=== PATIENT | female | born 1950 | race Caucasian/White ===

== ENCOUNTER → 2024-05-29 | Outpatient (CLI) | payer MEDICARE, SELFPAY ==
[2024-05-29 17:48] LABS: INR 4.5 (0.9-1.3)
[2024-05-29 17:59] LABS: Prothrombin Time 44.1 Seconds (9.0-12.2)
== END | disposition home or self-care (01) ==
LOC: COPL 16:49
PROVIDERS: PCP Nurse Practitioner Family; Referring Provider Internal Medicine Cardiovascular Disease; Visit Provider Internal Medicine Cardiovascular Disease
DX: I11.0 Hypertensive heart disease with heart failure (principal); I50.22 Chronic systolic (congestive) heart failure; I20.9 Angina pectoris, unspecified
CPT/HCPCS: 36415; 85610

== ENCOUNTER → 2024-06-20 | Outpatient (CLI) | payer MEDICARE, SELFPAY ==
[2024-06-20 16:52] LABS: INR 3.1 (0.9-1.3)
[2024-06-20 17:17] LABS: Prothrombin Time 30.9 Seconds (9.0-12.2)
== END | disposition home or self-care (01) ==
LOC: COPL 15:29
PROVIDERS: PCP Student in an Organized Health Care Education/Training Program; Referring Provider Internal Medicine Cardiovascular Disease; Visit Provider Internal Medicine Cardiovascular Disease
DX: I11.0 Hypertensive heart disease with heart failure (principal); I50.22 Chronic systolic (congestive) heart failure; I48.20 Chronic atrial fibrillation, unspecified; I20.9 Angina pectoris, unspecified
CPT/HCPCS: 36415; 85610

== ENCOUNTER 2024-09-24 10:20 | Emergency (ER) | payer MEDICARE, SELFPAY ==
[2024-09-24 10:21] VITALS: BMI 26.1
[2024-09-24 10:28] VITALS: BP 147/76; PULSE 92; RESP 19; TEMP 36.7; O2SAT 96
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
--- NOTE | 2024-09-24 10:51 | XR_ITS ---
Examination: Hand, right 3 views Technique: Hand AP, oblique, lateral 3 views Date and time of exam: September 24, 2024, 1109 hrs. Indications: Patient fell yesterday with injury to the hand, hand pain Findings: Acute impacted comminuted intra-articular fractures distal radius including through the metaphyseal region and distal shaft The fingers are curved which limits hand assessment The ulnar styloid tip is also fractured Impression: Limited study Acute fractures distal radius as above
--- NOTE | 2024-09-24 10:51 | XR_ITS ---
Examination: Wrist, right 3 views Technique: Wrist AP, oblique, lateral 3 views Date and time of exam: September 24, 2024, 1109 hrs. Indications: Patient fell yesterday with injury to the wrist, wrist pain. Findings: Acute fractures distal radial shaft Acute impacted comminuted intra-articular fractures distal radial metaphysis Fracture ulnar styloid tip Carpal bones appear intact Impression: Multiple acute fractures distal radius
[2024-09-24] MEDS: ACETAMINOPHEN 325 MG TABLET 650 MG PO (10:58)
[2024-09-24 13:32] VITALS: BP 149/90; PULSE 64; RESP 18; TEMP 36.8; O2SAT 100
--- NOTE | 2024-09-24 13:35 | PC.NURSE ---
[facility]/o right wrist pain s/p fall last pm, patient denies loc, patient did not hit her head when she fell, and denies other injuries, currently patient refuses to get into a gown and is awaiting consult with orthopedic surgeon, patient states pain /10 and has decreased from the time she arrived to er, skin is warm dry and pink, patient has positive deformity to right wrist, skin to left wrist warm and pink, cap refill at 2 seconds, patient states pain is tolerable at this time, patient has towel on right wrist and states it is helping with her pain. Patient has no other needs at this time.
--- NOTE | 2024-09-24 14:14 | PC.NURSE ---
Dr. Canales at bedside.
[2024-09-24] MEDS: LIDOCAINE HCL 1% 20 ML VIAL 10 ML INFL (14:32)
--- NOTE | 2024-09-24 14:35 | PC.NURSE ---
DR CUEVA AT BEDSIDE TO PERFORM A HEMATOMA BLOCK TO THE RIGHT WRIST VERBAL CONSENT OBTAINED WITH MARIANNA VAZQUEZ DUE TO PT NOT BEING ABLE TO SIGN CONSENT FORM
--- NOTE | 2024-09-24 14:55 | XR_ITS ---
Examination: Wrist, left 3 views Technique: Wrist AP, oblique, lateral 3 views Date and time of exam: September 24, 2024, 1456 hrs. Indications: Second reduction attempt fractures distal radius today Findings: Significant further improvement in alignment fractures distal radius without significant displacement of the distal epiphysis on the lateral view Impression: Significant further improvement in alignment fracture distal radius
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
--- NOTE | 2024-09-24 15:07 | PD.SUROPNT ---
Date of Procedure 09/24/24 Pre Op Diagnosis Angulated intra-articular right Colles' fracture Post Op Diagnosis Same Procedure Close manipulation of right Colles' fracture after hematoma block Findings Comminuted intra-articular right Colles' fracture with shortening and angulation Procedure Description The patient's lateral right wrist was confirmed as the injured extremity Consent signed for manipulation. The right wrist was very carefully prepped with alcohol and ChloraPrep. 5 cc hematoma block done to the right radius and 5 cc hematoma block to the right ulna. Nice aspiration occurred with blood both done without difficulty using 22-gauge needle. After waiting 7 minutes the fracture of the right wrist manipulated and placed in a sugar-tong's cast 6 inch cut bias was applied followed by net dressing postreduction films ordered Anesthesia regional Drains None Implants None Pathology / specimen None IVF Infused 0 Urine Output 0 Estimated Blood Loss 0 Condition Stable Disposition no change Surgeon Jewel Sen MD Additional Comment Elevate elevate elevated. Fingers gently 5-10 times per hour. Elevate on pillows. Sent home
--- NOTE | 2024-09-24 15:21 | XR_ITS ---
Examination: CT right wrist, without contrast. 2-D sagittal reconstructions. 2-D coronal reconstructions. 3-D reconstructions. Date and time of exam:September 24, 2024, 1551 hrs. Indications: Patient fell last night with injury to the wrist, wrist pain CTDI: vol (mGy):4.18 DLP: (mGycm):69 Technique: Multiple 1.25 mm axial sections of the left wrist have been obtained. 2-D sagittal and coronal reconstructions have been obtained. 3-D reconstructions have been obtained. Low dose protocols were performed. One or more of the following dose reduction techniques were used; automated exposure control, adjustment of the mA and/or KV according to patient size, use of iterative reconstruction technique. Findings: Fractures distal shaft of the radius without significant displacement Comminuted mildly impacted intra-articular multiple fractures of the distal radial metaphysis with adequate alignment on the current postreduction views Comminuted fractures distal ulna including through the ulnar styloid tip Carpal bones intact with separation between the navicular in the lunate Impression: Comminuted fractures distal radius as above
[2024-09-24 16:17] VITALS: BP 152/89; PULSE 75; RESP 19; TEMP 36.6; O2SAT 96
== END 2024-09-24 16:46 | disposition home or self-care (01) ==
PROVIDERS: Emergency Provider Emergency Medicine; PCP Student in an Organized Health Care Education/Training Program
DX: S52.531A Colles' fracture of right radius, initial encounter for closed fracture (principal); S52.571A Other intraarticular fracture of lower end of right radius, initial encounter for closed fracture; S52.611A Displaced fracture of right ulna styloid process, initial encounter for closed fracture; W19.XXXA Unspecified fall, initial encounter
CPT/HCPCS: 25605; 73110; 73130; 73200; 99284; J3490; A9270

== ENCOUNTER → 2024-09-26 | Outpatient (CLI) | payer MEDICARE, SELFPAY ==
--- NOTE | 2024-09-26 | XR_ITS ---
Examination: Wrist, right 3 views Technique: Wrist AP, oblique, lateral 3 views Date and time of exam: September 26, 2024 1329 hours, compared to wrist films dating to September 24, 2024 FINDINGS: Stable alignment multiple fractures distal radius compared to prior studies Carpal bones intact IMPRESSION: Stable alignment multiple fractures distal radius
== END | disposition home or self-care (01) ==
PROVIDERS: PCP Student in an Organized Health Care Education/Training Program; Referring Provider Orthopaedic Surgery; Visit Provider Orthopaedic Surgery
DX: S52.531A Colles' fracture of right radius, initial encounter for closed fracture (principal); X58.XXXA Exposure to other specified factors, initial encounter
CPT/HCPCS: 73110

== ENCOUNTER → 2024-10-13 | Outpatient (CLI) | payer MEDICARE, SELFPAY ==
--- NOTE | 2024-10-13 12:36 | XR_ITS ---
Examination: Wrist, right 3 views Technique: Wrist AP, oblique, lateral 3 views Date and time of exam: October 16, 2024 1245 hours INDICATIONS: Acute comminuted fractures distal radial metaphysis 17/09/2024 FINDINGS: On this study no definite change in alignment of comminuted fractures distal radial metaphysis with impaction Early healing IMPRESSION: On this study no definite change in alignment of comminuted fractures distal radial metaphysis
--- NOTE | 2024-10-13 12:36 | XR_ITS ---
Examination: Hand, right 3 views Technique: Hand AP, oblique, lateral 3 views Date and time of exam: October 13, 2024 1245 hours INDICATIONS: Injury to the hand and wrist September 24, 2024, comminuted fractures distal radius on CT wrist September 24, 2024 FINDINGS: Prominent osteopenia Slight further impaction of comminuted fractures distal radial metaphysis compared to October 13, 2024 Early healing Metacarpals digits intact IMPRESSION: Slight further impaction of comminuted fractures distal radial metaphysis compared to October 13, 2024
== END | disposition home or self-care (01) ==
LOC: CDIM 12:31
PROVIDERS: Referring Provider Nurse Practitioner Gerontology; Visit Provider Nurse Practitioner Gerontology
DX: S52.91XA Unspecified fracture of right forearm, initial encounter for closed fracture (principal); X58.XXXA Exposure to other specified factors, initial encounter
CPT/HCPCS: 73110; 73130

== ENCOUNTER 2025-01-12 04:09 | Emergency (ER) | payer MEDICARE, SELFPAY ==
[2025-01-12] VITALS (10 sets, daily range): BP systolic 113–189; BP diastolic 68–97; PULSE 60–94; RESP 15–95; TEMP 36.6–36.8; O2SAT 85–99; BMI 22.3
--- NOTE | 2025-01-12 04:41 | PD.EDFALL ---
ED Fall Injury RME/HPI General Chief Complaint: Fall Stated Complaint: Fall, shoulder/head injury Time Seen by Provider: 01/12/25 04:40 Arrival date/time: 01/12/25 04:09 RME / HPI RME / HPI Narrative: See MDM for Dr. Geller's HPI Documentation. Related Data Home Medications ?Medication ?Instructions ?Recorded ?Confirmed hydrochlorothiazide 25 mg tablet 25 mg PO QAM #0 tabs 11/21/15 11/30/19 ramipril 10 mg capsule (Altace) 10 mg PO QDAY #0 caps 11/21/15 11/30/19 ergocalciferol (vitamin D2) 1,250 1,250 mcg PO QWEEK 11/23/19 11/30/19 mcg (50,000 unit) capsule (Vitamin D2) meloxicam 15 mg tablet 15 mg PO QDAY PRN Pain 11/23/19 11/30/19 tramadol 50 mg tablet 50 mg PO DAILY 11/23/19 11/30/19 Allergies Allergy/AdvReac Type Severity Reaction Status Date / Time codeine Allergy Severe Rash Verified 09/24/24 10:23 morphine Allergy Intermediate Itching Verified 09/24/24 10:23 ketorolac (From Toradol) Allergy Nausea Verified 09/24/24 10:23 Review of Systems Review of Systems Systems Reviewed: All systems reviewed, normal except as documented Past Medical History Past Medical History CARDIAC: Positive Atrial Fibrillation and Hypertension GENITOURINARY: Positive Renal Disease REPRODUCTIVE: Positive Breast Cancer and Previous Pregnancies MUSCULOSKELETAL: Positive Arthritis HEMATOLOGIC: Positive Anemia OTHER HISTORY: Positive Breast Cancer Family History FAMILY HISTORY: Positive Family Respiratory Disorders, Family Cardiac Disorders, Family Gastrointestinal Problems, Family Cancer and Family Surgery Surgical History SURGICAL: Positive Joint Replacement and Lumpectomy ED Exam Narrative Physical exam: See [facility] for Dr. Geller's Physical Exam Documentation. Course Quality Measures none Orders Category Date Time Status IV [Insert IV] NOW Care 01/12/25 04:32 Active Straight [In and Out Catheter] X1 Care 01/12/25 04:41 Active sling [Splint / Immobilizer] STAT Care 01/12/25 05:[address] cervical spine wo con Stat Exams 01/12/25 04:[address] chest abdomen pelvis wo Stat Exams 01/12/25 04:[address] facial bones wo con Stat Exams 01/12/25 04:[address] head/brain wo con Stat Exams 01/12/25 04:42 Ordered XR chest 1V portable Stat Exams 01/12/25 04:42 Taken XR humerus RT min 2V Stat Exams 01/12/25 04:42 Taken XR shoulder RT 1V Stat Exams 01/12/25 05:46 Ordered XR shoulder RT min 2V Stat Exams 01/12/25 04:42 Taken BNP [B-Type Natriuretic Peptide] Stat Lab 01/12/25 05:01 Received Bilirubin,Direct Stat Lab 01/12/25 05:01 Completed CBC Stat Lab 01/12/25 05:01 Completed CMP [Comprehensive Metabolic Panel] Stat Lab 01/12/25 05:01 Completed Magnesium Stat Lab 01/12/25 05:01 Completed PT [Prothrombin Time with INR] Stat Lab 01/12/25 05:01 Completed PTT [Partial Thromboplastin Time] Stat Lab 01/12/25 05:01 Completed UA, C/S IF [Urinalysis, C/S if Indicated] Stat Lab 01/12/25 04:43 Ordered HYDROmorphone INJ [Dilaudid Inj] Med 01/12/25 04:41 Discontinued 1 mg IVP X1 ONE Midazolam Inj [Versed Inj] Med 01/12/25 05:31 Discontinued 6 mg IVP X1 ONE Ondansetron Inj [Zofran Inj] Med 01/12/25 04:41 Discontinued 4 mg IVP X1 ONE Sodium Chloride 0.9% 1000 ml [Ns] 1,000 ml Med 01/12/25 04:41 Discontinued IV 999 mls/hr fentaNYL INJ [Sublimaze Inj] Med 01/12/25 05:31 Discontinued 100 mcg IVP X1 ONE Vital Signs Vital signs: Vital Signs Temperature 98.2 F 01/12/25 04:10 Pulse Rate 66 01/12/25 04:10 Respiratory Rate 18 01/12/25 04:10 Blood Pressure 189/97 H 01/12/25 04:10 Pulse Oximetry (%) 96 01/12/25 04:10 Oxygen Delivery Method Room Air 01/12/25 04:10 Fall MDM Narrative MDM Narrative:: This section includes all my notes and documentations, including HPI, PE, and ED course. Wicho Geller MD HPI: 74 y/o female with Hx of Atrial Fibrillation, Hypertension, Renal Disease, Breast Cancer, Arthritis, Anemia here after mechanical fall just [employer]. Tripped on a curb. Fell sustaining head injury and right shoulder injury. Happened so fast, can't remember all the details. Has headache and neck pain. No chest pain or abdominal pain. No other limb pain. No other complaints. ROS: All negative except as documented in HPI. Physical Exam: General: Alert and oriented. In severe pain. HEENT: Conjunctivae and lids clear. EOMI. PERRL. In the frontal area, there is walnut sized hematoma. Neck: Supple. No tenderness. Heart: RRR. Lungs: No respiratory distress. Good air movement. No rhonchi, wheezing, rales. Chest: No tenderness. Abdomen: Soft and nontender. Normal bowel sounds. No distension. No rebound or guarding. Back: No tenderness. Skin: Warm and dry. Neuro: Alert and oriented X 3. Cranial Nerves II-XII grossly intact. No peripheral motor deficits. Musculoskeletal: Remarkable for right shoulder tenderness and deformity. All other major joints and bones are not tender with no limited ROM. Right shoulder dislocation reduced by our resident, see her procedure note. I ordered diagnostic tests. At 0600 on 01/12/2025, the care of the patient was transferred to Dr. Kilgore. Wicho Geller MD Patient data External records reviewed:: [facility] previous records (Reviewed prior ED records from 09/24/24. Patient was seen for Acute pain of right wrist.) Clinical information provided by:: patient Social determinants that could affect healthcare access:: none Patient has the following chronic illnesses:: Atrial Fibrillation, Hypertension, Renal Disease, Breast Cancer, Arthritis, Anemia How is presenting disease/condition affected by chronic disease/condition?: exacerbated by Evaluation data The following diagnostics were reviewed and interpreted by me:: lab results and radiology exam(s) Lab and/or radiology exams considered but not ordered:: None Interpretation Summary: Complete diagnostic tests are pending. Medications / Prescriptions Medications or Prescriptions considered but not ordered:: None Medication administrations:: Medication Administration History Discontinued Medications Fentanyl Citrate (Fentanyl Cit Inj 50 Mcg/Ml Amp 2ml) 100 mcg IVP X1 ONE Stop: 01/12/25 05:32 Last Admin: 01/12/25 05:45 Dose: 100 mcg Documented By: TONY Hydromorphone HCl (Hydromorphone Inj 2 Mg/Ml Vial) 1 mg IVP X1 ONE Stop: 01/12/25 04:42 Last Admin: 01/12/25 04:57 Dose: 1 mg Documented By: ESTELLE Sodium Chloride (Ns) 1,000 mls @ 999 mls/hr IV .Q1H1M ONE Stop: 01/12/25 05:41 Last Admin: 01/12/25 04:57 Dose: 999 mls/hr Documented By: ESTELLE Midazolam HCl (Midazolam Inj 1 Mg/Ml Vial 2 Ml) 6 mg IVP X1 ONE Stop: 01/12/25 05:32 Last Admin: 01/12/25 05:45 Dose: 6 mg Documented By: TONY Ondansetron HCl (Ondansetron Inj 2 Mg/Ml Inj 2 Ml) 4 mg IVP X1 ONE; Protocol Stop: 01/12/25 04:42 Last Admin: 01/12/25 04:57 Dose: 4 mg Documented By: ESTELLE IVF, Zofran 4 mg IV, and Dilaudid 1 mg IV given. No improvement noted. Successful conscious sedation with Fentanyl 100 mcg IV and Versed 6 mg IV. Consultations Consultation(s) initiated? (list below): No Diagnosis Fall Differential Diagnosis: syncope, dislocation of shoulder region, fracture of wrist, compression fracture and concussion without loss of consciousness Most likely diagnosis given after review of the tests above:: Fall Head Injury Right shoulder dislocation Admission Indicated Admission indicated?: not indicated Explain why admission is indicated or not indicated:: Complete diagnostic tests are pending. Admission Request Was there a request for admission?: No Disposition Plan Disposition Plan: other (specify) (At 0600 on 01/12/2025, the care of the patient was transferred to Dr. Kilgore.) Discharge Plan Prescriptions/Referrals Prescriptions/Med Rec: No Action hydrochlorothiazide 25 MG tablet 25 mg PO QAM Qty: 0 ramipril [Altace] 10 MG capsule 10 mg PO QDAY Qty: 0 meloxicam 15 mg Tablet 15 mg PO QDAY PRN (Reason: Pain) tramadol 50 mg Tablet 50 mg PO DAILY ergocalciferol (vitamin D2) [Vitamin D2] 1,250 mcg (50,000 unit) Capsule 1,250 mcg PO QWEEK Problem List Clinical Impression: Fall, Dislocation of right shoulder joint, Head injury Patient/Caregiver Discharge Instructions Print Language: Syrian
--- NOTE | 2025-01-12 04:42 | XR_ITS ---
Examination: CT maxillofacial, without intravenous contrast. 2-D sagittal reconstructions. 3-D reconstructions. Date and time of exam: January 12, 2025, 0721 hours INDICATIONS: Patient fell today with injury to the face, facial pain CTDI: vol (mGy): 15.6 DLP: (mGycm): 271 Technique: Multiple axial images of maxillofacial region, 3.0 mm slice thickness. 2-D sagittal and coronal reconstructions. 3-D reconstructions. Low dose protocols were performed. One or more of the following dose reduction techniques were used; automated exposure control, adjustment of the mA and/or KV according to patient size, use of iterative reconstruction technique. Findings: Frontal bones frontal sinuses intact Orbital rims intact No depression zygomatic arches No nasal bone fracture Maxilla and the mandible intact IMPRESSION: No acute facial fracture.
--- NOTE | 2025-01-12 04:42 | XR_ITS ---
Examination: CT cervical spine without contrast 2-D sagittal reconstructions 2-D coronal reconstructions 3-D reconstructions. Exam date and time: January 12, 2025, 0721 hours INDICATIONS: Patient fell today with injury to the neck, neck pain CTDI:vol (mGy) 12.7 DLP: (mGycm) 234 Technique: Multiple 2 mm axial sections of the cervical spine have been obtained. The coronal and sagittal reconstructions have been obtained. 3-D reconstructions have been obtained. Low dose protocols were performed. One or more of the following dose reduction techniques were used; automated exposure control, adjustment of the mA and/or KV according to patient size, use of iterative reconstruction technique. Findings: Axial sections demonstrate intact base of the skull. C1 exhibit satisfactory relationship to the odontoid. No acute cervical vertebral body fracture seen. Alignment posterior spinous processes satisfactory. Impression: No acute cervical fracture.
--- NOTE | 2025-01-12 04:42 | XR_ITS ---
EXAMINATION: Right shoulder 2 views TECHNIQUE: Right shoulder AP internal rotation Y-view 2 views Date and time: January 12, 2025, 0513 hours INDICATION: Patient fell 4 hours ago with injury to the shoulder, shoulder pain FINDINGS: Anterior subcoracoid shoulder dislocation No fracture No AC joint separation IMPRESSION: Anterior subcoracoid shoulder dislocation
--- NOTE | 2025-01-12 04:42 | XR_ITS ---
Examination: Humerus right single view Technique: Humerus, AP right single view Date and time of exam: January 12, 2025, 0519 hours INDICATIONS: Patient fell 4 hours ago with injury to arm, right arm pain FINDINGS: Anterior right subcoracoid shoulder dislocation Humerus appears intact IMPRESSION: Anterior subcoracoid shoulder dislocation
--- NOTE | 2025-01-12 04:42 | XR_ITS ---
EXAMINATION: AP chest single view TECHNIQUE: AP portable upright chest single view Date and time: January 12, 2025, 0510 hours, comparison 11/13/2021 INDICATIONS: Patient fell 4 hours ago with chest pain. FINDINGS: Mild enlargement cardiac contour The pulmonary artery segments and especially the left pulmonary artery appear prominent again No pneumothorax Right anterior subcoracoid shoulder dislocation Ribs appear intact IMPRESSION: Suspicious for pulmonary artery hypertension Right anterior subcoracoid shoulder dislocation No pneumothorax
--- NOTE | 2025-01-12 04:42 | XR_ITS ---
Examination: CT chest, without intravenous contrast. CT abdomen, without intravenous contrast. CT pelvis, without intravenous contrast. 2-D sagittal and coronal reconstructions. 3-D reconstructions. Date and time of exam: January 12, 2025, 0726 hours COMPARISON: 11/13/2021 INDICATIONS: Patient fell today with injury to the chest and abdomen, chest pain abdomen pain CTDI vol (mgy) 8.1 DLP (MGycm) 553 Technique: Multiple CT images, 3.0 mm slice thickness, obtained chest, abdomen, pelvis, with the high-resolution 64 slice scanner.. Sagittal and coronal 2-D reconstructions are obtained. 3-D reconstructions Low dose protocols were performed. One or more of the following dose reduction techniques were used; automated exposure control, adjustment of the mA and/or KV according to patient size, use of iterative reconstruction technique. Findings: Thoracic aorta pulmonary arteries appear intact on this noncontrast study Pulmonary artery hypertension, main pulmonary artery segment measures 46 mm Mild enlargement cardiac contour No pneumothorax pulmonary contusion or hemothorax Sternal segments thoracic vertebral bodies intact Ribs appear intact No liver splenic or renal laceration on this noncontrast study Aorta in the abdomen intact No free body in the abdomen or pelvis Normal appendix Negative for pneumoperitoneum Atrophic uterus Urinary bladder intact Hips bones of the pelvis lumbar vertebral bodies intact IMPRESSION: Thoracic aorta pulmonary arteries intact Pulmonary artery hypertension No pneumothorax or hemothorax No abdominal parenchymal laceration Abdominal aorta intact No free blood in the abdomen or pelvis
--- NOTE | 2025-01-12 04:42 | XR_ITS ---
Examination: CT brain head without contrast. 2-D sagittal coronal reconstructions Date and time of exam: January 12, 2025, 0721 hours INDICATIONS: Patient fell today with injury to the head, head pain CTDI: vol (mGy): 44.5 DLP: (mGycm): 870 Technique: Multiple CT axial sections of the brain have been obtained, 5 mm slice thickness. Contrast has not been administered. 2-D sagittal, coronal reconstructions have been obtained Low dose protocols were performed. One or more of the following dose reduction techniques were used; automated exposure control, adjustment of the mA and/or KV according to patient size, use of iterative reconstruction technique. Findings: No significant ventricular enlargement. Intra-axial or extra-axial hemorrhage density is not seen. No mass effect or midline shift Basal cisterns are not remarkable. Fourth ventricle is midline. Cranial vault intact. Impression: Negative for acute hemorrhage, mass effect or midline shift
[2025-01-12] MEDS: SODIUM CHLORIDE 0.9% 1000 ML 1,000 ML 999 ML IV (04:57)
[2025-01-12] MEDS: ONDANSETRON INJ 2 MG/ML INJ 2 ML 4 MG IVP (04:57)
[2025-01-12] MEDS: HYDROmorphone INJ 2 MG/ML VIAL 1 MG IVP (04:57)
[2025-01-12 05:33] LABS: Basophils # (Auto) 0.1 Thou/mm3 (0.0-0.2); Basophils % (Auto) 1 % (0-2.5); Eosinophils # (Auto) 0.2 Thou/mm3 (0.0-0.5); Eosinophils % (Auto) 2 % (0-10); Hematocrit 34.2 % (36.0-46.0); Hemoglobin 11.3 g/dL (12.0-16.0); Immature Granulocytes Auto 0.03 Thou/mm3 (0.00-0.00); Lymphocytes # (Auto) 2.6 Thou/mm3 (1.0-4.8); Lymphocytes % (Auto) 25 % (10-50); Mean Corpuscular HGB Conc 33.0 g/dl (31.0-37.0); Mean Corpuscular Hemoglobin 31.5 pg (25.0-35.0); Mean Corpuscular Volume 95 fL (80-100); Monocytes # (Auto) 0.8 Thou/mm3 (0.0-0.8); Monocytes % (Auto) 8 % (0-12); Neutrophils # (Auto) 6.5 Thou/mm3 (1.8-7.7); Neutrophils % (Auto) 64 % (37-80); Nucleated Red Blood Cell # 0.00 Thou/mm3 (0.00-0.00); Nucleated Red Blood Cell % 0 /100 WBC (0); Platelet Count 285 Thou/mm3 (140-440); RDW Standard Deviation 47.2 fL (36.4-46.3); Red Blood Count 3.59 Miln/mm3 (4.00-5.20); White Blood Count 10.2 Thou/mm3 (3.6-11.0)
[2025-01-12] MEDS: fentaNYL CIT INJ 50 mCg/ML AMP 2ML 100 MCG IVP (05:45)
[2025-01-12] MEDS: MIDAZOLAM INJ 1 MG/ML VIAL 2 ML 6 MG IVP (05:45)
--- NOTE | 2025-01-12 05:46 | XR_ITS ---
EXAMINATION: Right shoulder single view TECHNIQUE: AP internal rotation right shoulder single view Date and time: January 12, 2025, 0614 hours, comparison January 12, 2025 0519 hours INDICATIONS: Anterior subcoracoid dislocation of the shoulder today post reduction film FINDINGS: Successful reduction shoulder dislocation No fracture IMPRESSION: Successful reduction shoulder dislocation
[2025-01-12 05:47] LABS: INR 1.1 (0.9-1.3); Partial Thromboplastin Time 27.4 Seconds (22.0-36.0); Prothrombin Time 11.5 Seconds (9.0-12.2)
[2025-01-12 05:50] LABS: Alanine Aminotransferase 32 U/L (10-49); Albumin, Serum 4.5 gm/dL (3.4-4.8); Albumin/Globulin Ratio 1.9 (1.2-2.2); Alkaline Phosphatase 123 U/L (46-116); Anion Gap 12 (7-16); Aspartate Amino Transferase 30 U/L (0-34); BUN/Creatinine Ratio 15 Ratio (12-20); Bilirubin,Direct 0.2 mg/dL (0.0-0.3); Bilirubin,Total 0.7 mg/dL (0.3-1.2); Blood Urea Nitrogen 24 mg/dL (9-23); Calcium 9.5 mg/dL (8.3-10.6); Calcium (Corrected) 9.5 mg/dL (8.5-10.1); Carbon Dioxide 23.2 mMol/L (20.0-31.0); Chloride 107 mMol/L (98-107); Creatinine (Component) 1.6 mg/dL (0.6-1.3); Estimated Creatinine Clearance 26.2 mL/min (>60); Globulin 2.4 gm/dL (2.3-3.5); Glucose 148 mg/dL (74-106); Magnesium 1.6 mg/dL (1.6-2.6); Osmolality,Calculated 290 (275-295); Potassium 3.7 mMol/L (3.4-5.1); Sodium 142 mMol/L (136-145); Total Protein 6.9 gm/dL (5.7-8.2); eGFR 33 See Note
[2025-01-12 06:11] LABS: B-Type Natriuretic Peptide 105 pg/mL (0-100)
--- NOTE | 2025-01-12 06:12 | PD.RESPROC ---
PROCEDURES: Procedure Date / Time 01/12/25 0612 Procedural Time Out Time out performed: Time out called, correct patient, correct area, images review, and allerigies reviewed. Procedure Narrative Procedure Narrative: Procedure Note: Right Shoulder Reduction Administration of Versed 6 mg IVP X 1 an dFentanyl 100 mcg X 1 Shoulder X-ray noted: right shoulder dislocation Time out called and allergies reviewed. Technique: Traction-countertraction Complications: Patient tolerated technique. Repeat Shoulder x-ray ordered.
[2025-01-12 08:19] LABS: Collection Type, Urine Clean Catch
[2025-01-12 08:32] LABS: Bilirubin,Urine Negative (Negative); Blood,Urine Negative (Negative); Clarity,Urine Clear (Clear/Hazy); Color,Urine Lt-Yellow (Lt Yel-Yel); Culture Indicated,Urine Not Indicated; Glucose, Urine Negative (Negative); Ketones,Urine Negative (Negative); Leukocyte Esterase,Urine Positive (Negative); Nitrite,Urine Negative (Negative); PH,Urine 5.5 (5.0-7.0); Protein,Urine Negative (Neg - Trace); RBC,Urine 1 /hpf (0-3); Specific Gravity,Urine 1.020 (1.001-1.035); Squamous Epithelial Cell,Urine < 1 /hpf (0-5); Urobilinogen,Urine Negative mg/dL (0.0-1.0); WBC,Urine 1 /hpf (0-5)
--- NOTE | 2025-01-12 12:15 | EDNOTE_ITS ---
Emergency Room Addendum Addendum Narrative: 0600: Care assumed from Dr. Geller, the previous shift emergency physician. Past medical, surgical, social and family history reviewed. Vitals and home medications reviewed. I will assume the care of the patient at this time, pending CTs and final disposition. Please refer to the emergency department record for history and examination from initial visit.?The following addendum documentation note is intended to reflect any pending information, findings, or radiology results not included in the patient?s initial chart. Patient remains clinically stable throughout the emergency department visit. We reviewed all the results, analysis, and treatment plans. Patient is amenable to discharge. Strict return precautions were outlined. Patient was discharged in stable condition. RADIOLOGY Ordering Physician: Wicho Geller MD Date of Service: 01/12/25 Procedure(s): CT head/brain wo [facility] Accession Number(s): [id number] cc: Wicho Geller MD; Shola Alvarez MD; Jenifer Ceja~ Examination: CT brain head without contrast. 2-D sagittal coronal reconstructions Date and time of exam: January 12, 2025, 0721 hours INDICATIONS: Patient fell today with injury to the head, head pain CTDI: vol (mGy): 44.5 DLP: (mGycm): 870 Technique: Multiple CT axial sections of the brain have been obtained, 5 mm slice thickness. Contrast has not been administered. 2-D sagittal, coronal reconstructions have been obtained Low dose protocols were performed. One or more of the following dose reduction techniques were used; automated exposure control, adjustment of the mA and/or KV according to patient size, use of iterative reconstruction technique. Findings: No significant ventricular enlargement. Intra-axial or extra-axial hemorrhage density is not seen. No mass effect or midline shift Basal cisterns are not remarkable. Fourth ventricle is midline. Cranial vault intact. Impression: Negative for acute hemorrhage, mass effect or midline shift Dictated By: Shola Alvarez MD Signed By: <Electronically signed by Shola Alvarez MD in OV> 11/14/25 0939 Ordering Physician: Wicho Geller MD Date of Service: 01/12/25 Procedure(s): CT chest abdomen pelvis wo Accession Number(s): [id number] cc: Wicho Geller MD; Shola Alvarez MD; Jenifer Ceja~ Examination: CT chest, without intravenous contrast. CT abdomen, without intravenous contrast. CT pelvis, without intravenous contrast. 2-D sagittal and coronal reconstructions. 3-D reconstructions. Date and time of exam: January 12, 2025, 0726 hours COMPARISON: 11/13/2021 INDICATIONS: Patient fell today with injury to the chest and abdomen, chest pain abdomen pain CTDI vol (mgy) 8.1 DLP (MGycm) 553 Technique: Multiple CT images, 3.0 mm slice thickness, obtained chest, abdomen, pelvis, with the high-resolution 64 slice scanner.. Sagittal and coronal 2-D reconstructions are obtained. 3-D reconstructions Low dose protocols were performed. One or more of the following dose reduction techniques were used; automated exposure control, adjustment of the mA and/or KV according to patient size, use of iterative reconstruction technique. Findings: Thoracic aorta pulmonary arteries appear intact on this noncontrast study Pulmonary artery hypertension, main pulmonary artery segment measures 46 mm Mild enlargement cardiac contour No pneumothorax pulmonary contusion or hemothorax Sternal segments thoracic vertebral bodies intact Ribs appear intact No liver splenic or renal laceration on this noncontrast study Aorta in the abdomen intact No free body in the abdomen or pelvis Normal appendix Negative for pneumoperitoneum Atrophic uterus Urinary bladder intact Hips bones of the pelvis lumbar vertebral bodies intact IMPRESSION: Thoracic aorta pulmonary arteries intact Pulmonary artery hypertension No pneumothorax or hemothorax No abdominal parenchymal laceration Abdominal aorta intact No free blood in the abdomen or pelvis Dictated By: Shola Alvarez MD Signed By: <Electronically signed by Shola Alvarez MD in OV> 01/12/25 0935 Ordering Physician: Wicho Geller MD Date of Service: 01/12/25 Procedure(s): CT facial bones wo con Accession Number(s): [id number] cc: Wicho Geller MD; Shola Alvarez MD; Jenifer Ceja~ Examination: CT maxillofacial, without intravenous contrast. 2-D sagittal reconstructions. 3-D reconstructions. Date and time of exam: January 12, 2025720 hours INDICATIONS: Patient fell today with injury to the face, facial pain CTDI: vol (mGy): 15.6 DLP: (mGycm): 271 Technique: Multiple axial images of maxillofacial region, 3.0 mm slice thickness. 2-D sagittal and coronal reconstructions. 3-D reconstructions. Low dose protocols were performed. One or more of the following dose reduction techniques were used; automated exposure control, adjustment of the mA and/or KV according to patient size, use of iterative reconstruction technique. Findings: Frontal bones frontal sinuses intact Orbital rims intact No depression zygomatic arches No nasal bone fracture Maxilla and the mandible intact IMPRESSION: No acute facial fracture. Dictated By: Shola Alvarez MD Signed By: <Electronically signed by Shola Alvarez MD in OV> 01/12/25 0937 Ordering Physician: Wicho Geller MD Date of Service: 01/12/25 Procedure(s): CT cervical spine wo con Accession Number(s): [id number] cc: Wicho Geller MD; Shloa Alvarez MD; Jenifer Ceja~ Examination: CT cervical spine without contrast 2-D sagittal reconstructions 2-D coronal reconstructions 3-D reconstructions. Exam date and time: January 12, 2025720 hours INDICATIONS: Patient fell today with injury to the neck, neck pain CTDI:vol (mGy) 12.7 DLP: (mGycm) 234 Technique: Multiple 2 mm axial sections of the cervical spine have been obtained. The coronal and sagittal reconstructions have been obtained. 3-D reconstructions have been obtained. Low dose protocols were performed. One or more of the following dose reduction techniques were used; automated exposure control, adjustment of the mA and/or KV according to patient size, use of iterative reconstruction technique. Findings: Axial sections demonstrate intact base of the skull. C1 exhibit satisfactory relationship to the odontoid. No acute cervical vertebral body fracture seen. Alignment posterior spinous processes satisfactory. Impression: No acute cervical fracture. Dictated By: Shola Alvarez MD Signed By: <Electronically signed by Shola Alvarez MD in OV> 01/12/25 0938
== END 2025-01-12 10:16 | disposition home or self-care (01) ==
PROVIDERS: Emergency Medicine; Emergency Provider Family Medicine; PCP Student in an Organized Health Care Education/Training Program
DX: S43.004A Unspecified dislocation of right shoulder joint, initial encounter (principal); X50.0XXA Overexertion from strenuous movement or load, initial encounter; I10 Essential (primary) hypertension; I48.91 Unspecified atrial fibrillation; I27.21 Secondary pulmonary arterial hypertension
CPT/HCPCS: 23650; 36415; 70450; 70486; 71045; 71250; 72125; 73020; 73030; 73060; 74176; 80053; 81001; 82248; 83735; 83880; 85025; 85610; 85730; 96361; 96374; 96375; 99284; J1171; J2250; J2405; J3010; J7030